=== PATIENT | female | born 1940 | race Caucasian/White ===

== ENCOUNTER 2019-01-22 08:08 | Day surgery (SDC) | payer MEDICARE, OTHER ==
[~2019-01-22 08:08] MED LIST: DORZOLAMIDE HCL 2%/TIMOLOL MALEAT 0.5% OPH SOLN 10 ML OD PRN; KETOROLAC TROMETHAMINE 0.45% 4 DROP/0.4 ML DROPERETTE OD PRN; TOBRAMYCIN SULFATE/DEXAMETH OPH OINTMENT 3.5 GM ONE
[2019-01-22] MEDS: TETRACAINE HCL 0.5% OPH SOLN 4 ML OD PRN ×4 (08:41→09:03)
[2019-01-22] MEDS: TROPICAMIDE 1% OPH SOLN 15 ML OD PRN ×3 (08:41→08:58)
[2019-01-22] MEDS: CYCLOPENTOLATE 0.2%/PHENYLEPHRINE 1% OPH SOLN 2 ML OD PRN ×3 (08:42→08:58)
[2019-01-22] MEDS: BESIFLOXACIN HCL 0.6% OPH SUSP 5 ML BOTTLE OD PRN ×3 (08:42→08:59)
[2019-01-22] MEDS ORDERED: MIDAZOLAM 2 MG/2 ML INJ ONE (08:54)
[2019-01-22] MEDS ORDERED: FENTANYL CITRATE INJ/PF 100 MCG/2 ML AMPUL ONE (08:54)
[2019-01-22] MEDS: EPINEPHRINE INJ/PF 1 MG/1 ML AMPULE ONE ×2 (09:15)
[2019-01-22] MEDS: CHONDR SU A NA/HYALUR INTRAOC KIT (SURGICARE) ONE ×2 (09:15)
[2019-01-22] MEDS: LIDOCAINE 1% INJ-PF (10 MG/ML) 30 ML SDV ONE ×2 (09:15)
== END 2019-01-22 10:00 | disposition home or self-care (01) ==
LOC: SC 08:08
PROVIDERS: ATTEND Ophthalmology
DX: H25.11 Age-related nuclear cataract, right eye (principal); E11.9 Type 2 diabetes mellitus without complications; I10 Essential (primary) hypertension; E03.9 Hypothyroidism, unspecified; Z79.899 Other long term (current) drug therapy; Z79.84 Long term (current) use of oral hypoglycemic drugs; Z87.891 Personal history of nicotine dependence; Z88.6 Allergy status to analgesic agent
CPT/HCPCS: 66984; 82962; V2632; J2250; J3490 ×3; A9270 ×2; J0171; J3010; 142

== ENCOUNTER 2019-02-19 08:09 | Day surgery (SDC) | payer MEDICARE, OTHER ==
[~2019-02-19 08:09] MED LIST changes: -DORZOLAMIDE HCL 2%/TIMOLOL MALEAT 0.5% OPH SOLN 10 ML OD PRN; -KETOROLAC TROMETHAMINE 0.45% 4 DROP/0.4 ML DROPERETTE OD PRN; +KETOROLAC TROMETHAMINE 0.45% 4 DROP/0.4 ML DROPERETTE OS PRN; -TOBRAMYCIN SULFATE/DEXAMETH OPH OINTMENT 3.5 GM ONE
[2019-02-19] MEDS ORDERED: LIDOCAINE 1%/PHENYLEPHRINE 1.5% 1 ML VIAL ONE (08:14)
[2019-02-19] MEDS ORDERED: EPINEPHRINE INJ/PF 1 MG/1 ML AMPULE ONE (08:14)
[2019-02-19] MEDS ORDERED: CHONDR SU A NA/HYALUR INTRAOC KIT (SURGICARE) ONE (08:14)
[2019-02-19] MEDS ORDERED: MIDAZOLAM 2 MG/2 ML INJ ONE (08:15)
[2019-02-19] MEDS: CYCLOPENTOLATE 0.2%/PHENYLEPHRINE 1% OPH SOLN 2 ML OS PRN ×3 (08:43→09:03)
[2019-02-19] MEDS: TETRACAINE HCL 0.5% OPH SOLN 4 ML OS PRN ×3 (08:43→09:10)
[2019-02-19] MEDS: TROPICAMIDE 1% OPH SOLN 15 ML OS PRN ×3 (08:43→09:03)
[2019-02-19] MEDS: BESIFLOXACIN HCL 0.6% OPH SUSP 5 ML BOTTLE OS PRN ×4 (08:43→09:30)
[2019-02-19] MEDS: DORZOLAMIDE HCL 2%/TIMOLOL MALEAT 0.5% OPH SOLN 10 ML OS PRN ×2 (09:30)
== END 2019-02-19 10:05 | disposition home or self-care (01) ==
LOC: SC 08:09
PROVIDERS: ATTEND Ophthalmology
DX: H25.12 Age-related nuclear cataract, left eye (principal); I10 Essential (primary) hypertension; E03.9 Hypothyroidism, unspecified; Z98.41 Cataract extraction status, right eye; Z87.891 Personal history of nicotine dependence; Z79.84 Long term (current) use of oral hypoglycemic drugs; Z79.899 Other long term (current) drug therapy; Z88.6 Allergy status to analgesic agent; E11.9 Type 2 diabetes mellitus without complications
CPT/HCPCS: 82962; 66984; V2632; J2250; J3490 ×2; A9270; J0171; J2370; 142